=== PATIENT | male | born 1955 | race Caucasian/White ===

== ENCOUNTER 2020-10-08 09:35 | Outpatient (REF) | payer MEDICARE, SELFPAY | END 2020-10-08 09:36 | disposition home or self-care (01) | LOC: HO.SCI 09:35 | PROVIDERS: Visit Provider Psychiatry & Neurology Neurology | DX: Z13.89 Encounter for screening for other disorder (principal) ==

== ENCOUNTER → 2020-10-24 14:28 | Outpatient (REF) | payer MEDICARE, SELFPAY | LOC: HO.SL 14:28 | PROVIDERS: PCP Family Medicine; Visit Provider Psychiatry & Neurology Neurology | DX: G47.9 Sleep disorder, unspecified (principal); R40.0 Somnolence; R53.83 Other fatigue; R06.83 Snoring | CPT/HCPCS: 95806 ==

== ENCOUNTER → 2021-06-24 15:04 | Outpatient (BNVA) | payer MEDICARE, SELFPAY | PROVIDERS: PCP Family Medicine; Visit Provider Psychiatry & Neurology Neurology | DX: G20 Parkinson's disease (principal); G47.00 Insomnia, unspecified; Z79.899 Other long term (current) drug therapy | CPT/HCPCS: 99212 ==